=== PATIENT | male | born 1980 | race Caucasian/White ===

== ENCOUNTER 2017-03-05 13:10 | Emergency (ER) | payer OTHER ==
[2017-03-05 13:34] VITALS: BP 136/70
--- NOTE | 2017-03-05 14:09 | RAD ---
HISTORY: Right elbow pain, redness, and swelling COMPARISONS: None VIEWS: 4, Frontal, lateral, and oblique views of the right elbow FINDINGS: BONE DENSITY: Normal. BONES: There is no displaced fracture. JOINTS: There is no arthropathy. ALIGNMENT: There is no dislocation. SOFT TISSUES: There is soft tissue swelling along the olecranon OTHER FINDINGS: None. IMPRESSION: SOFT TISSUE SWELLING. NO ACUTE OSSEOUS INJURY. IF SYMPTOMS PERSIST, RECOMMEND REPEAT IMAGING.
--- NOTE | 2017-03-05 14:43 | UC ---
Lyndon Ortez Gabriel, scribed for Edgar Méndez MD on 03/05/17 at 1433 . Upper Extremity HPI - HPI Summary HPI Summary: This patient is a 36 year old M presenting to [facility] with a chief complaint of right elbow pain since this morning. The patient rates the pain 6/10 in severity. Symptoms aggravated by movement. Patient reports erythema and pain in right elbow over the olecranon. Patient denies fever and general malaise. Pt has psoriasis over this elbow that he treats with cream. - History of Current Complaint Chief Complaint: UCUpperExtremity Stated Complaint: ELBOW PAIN Time Seen by Provider: 03/05/17 14:25 Hx Obtained From: Patient Onset/Duration: Lasting Hours - this morning, Still Present Severity Initially: Mild Severity Currently: Mild Pain Intensity: 6 Pain Scale Used: 0-10 Numeric Aggravating Factor(s): Movement Associated Signs And Symptoms: Positive: Swelling, Redness. Negative: Fever - Allergies/Home Medications Allergies/Adverse Reactions: Allergies Allergy/AdvReac Type Severity Reaction Status Date / Time Penicillins [PCN] Allergy Unknown Verified 03/05/17 13:34 Reaction Details Home Medications: Home Medications PARoxetine HCL TAB* [Paxil TAB*] 15 mg PO DAILY 03/05/17 [History Confirmed 02/09] PMH/Surg Hx/FS Hx/Imm Hx Previously Healthy: Yes Endocrine History: Other Other Endocrine History: psoriasis - Surgical History Surgical History: Yes Surgery Procedure, Year, and Place: facial reconstruction at age 14yr old, tubes to ears - Family History Known Family History: Positive: Other - parents had cancer, uncle has psoriasis - Social History Occupation: Employed Full-time Alcohol Use: Occasionally Substance Use Type: Marijuana Substance Use Comment - Amount & Last Used: daily Smoking Status (MU): Never Smoked Tobacco Review of Systems Constitutional: Negative - fever and general malaise Musculoskeletal: Other: - right elbow pain, erythema, and swelling All Other Systems Reviewed And Are Negative: Yes Physical Exam Triage Information Reviewed: Yes Appearance: Well-Appearing, No Pain Distress Vital Signs: Initial Vital Signs Temp 99.3 F 03/05/17 13:26 Pulse 64 03/05/17 13:26 Resp 18 03/05/17 13:26 BP 136/70 03/05/17 13:26 Pulse Ox 100 03/05/17 13:26 Eyes: Positive: Conjunctiva Clear ENT: Positive: Pharynx normal, TMs normal Respiratory: Positive: Lungs clear Cardiovascular: Positive: RRR, No Murmur Musculoskeletal: Positive: ROM Intact, Other: - no effusion on exam of elbow right. He has FROM and no pain on range of motion. There is an area of psoriasis over the right elbow olecrenon with a secondary are of cellulitis. Neurological: Positive: Alert Psychological: Positive: Normal Response To Family Skin: Positive: Other - psoriasis with cellulitis right elbow olecrenon. Diagnostics - Radiology elbow XRay Radiology Interpretation Completed By: Radiologist - SOFT TISSUE SWELLING. NO ACUTE OSSEOUS INJURY. IF SYMPTOMS PERSIST, RECOMMEND REPEAT IMAGING. ED physician has reviewed this radiology report. Upper Extremity Course/Dx - Course Course Of Treatment: 36 yr old with cellulitis right elbow psoriasis patch overlying. Plan bactrim DS, and dc to home. - Differential Dx/Diagnosis Provider Diagnoses: psoriasis. cellulitis Discharge - Discharge Plan Condition: Good Disposition: HOME Prescriptions: Sulfamethox/Trimethoprim DS* [Bactrim DS 800/160 TAB*] 1 tab PO BID #20 tab Patient Education Materials: Cellulitis (ED), Elbow Bursitis (ED) Referrals: John Hardwick MD [Primary Care Provider] - The documentation as recorded by the Lyndon harris Gabriel accurately reflects the service I personally performed and the decisions made by Honey moon Walter, MD.
== END 2017-03-05 14:43 | disposition home or self-care (01) ==
LOC: UCEAST 13:10
DX: L03.113 Cellulitis of right upper limb (principal); L40.9 Psoriasis, unspecified; Z88.0 Allergy status to penicillin
CPT/HCPCS: 99212; G0463

== ENCOUNTER 2017-07-22 11:25 | Emergency (ER) | payer OTHER ==
[2017-07-22 11:44] VITALS: BP 127/84
--- NOTE | 2017-07-22 11:48 | UC ---
Ear Complaint HPI - HPI Summary HPI Summary: Pt presents with b/l earache. He tells me that his right ear started bothering him 4 days ago, he was seen at [place] and dx'd with otitis media and placed on zpak. He has been taking this. Last night his left ear began to hurt and his right ear is draining. Denies fever, chills, cough, SOB, chest pain. - History of Current Complaint Chief Complaint: UCGeneralIllness Stated Complaint: EAR PAIN RESP ISSUE Time Seen by Provider: 07/22/17 11:47 Hx Obtained From: Patient Onset/Duration: Gradual Onset Severity Initially: Moderate Severity Currently: Moderate Pain Intensity: 7 Pain Scale Used: 0-10 Numeric - Allergies/Home Medications Allergies/Adverse Reactions: Allergies Allergy/AdvReac Type Severity Reaction Status Date / Time Penicillins Allergy Intermediate unkown Verified 07/22/17 11:45 Home Medications: Home Medications Azithromycin TAB* [Zithromax TAB (Z-LAVERN) 250 mg #6 tabs] 2 tab PO .TODAY, THEN 1 DAILY 07/22/17 [History Confirmed 07/22/17] PMH/Surg Hx/FS Hx/Imm Hx - Additional Past Medical History Additional PMH: None Previously Healthy: Yes - Surgical History Surgical History: Yes Surgery Procedure, Year, and Place: facial reconstruction at age 14yr old, tubes to ears. finger surgery at 15 - Family History Known Family History: Positive: Other - parents had cancer, uncle has psoriasis - Social History Occupation: Employed Full-time Lives: With Family Alcohol Use: Occasionally Substance Use Type: Marijuana Substance Use Comment - Amount & Last Used: daily Smoking Status (MU): Former Smoker When Did the Patient Quit Smoking/Using Tobacco: 2007 Review of Systems Constitutional: Negative Skin: Negative Eyes: Negative ENT: Ear Ache Respiratory: Negative Cardiovascular: Negative Gastrointestinal: Negative Neurovascular: Negative Neurological: Negative Psychological: Negative All Other Systems Reviewed And Are Negative: Yes Physical Exam - Summary Physical Exam Summary: GENERAL: NAD. WDWN. No pain distress. SKIN: No rashes, sores, lesions, or open wounds. HEENT: Head: AT/NC Eyes: EOM intact. Conjunctiva clear without inflammation or discharge. Ears: Hearing grossly normal. NTTP tragus or postauricular. Right: TMs mild erythema and bulging. Mild ear canal edema with moderate purulent drainage. Left: TM mild erythema and bulging. No ear canal edema or drainage. Nose: Nasal mucosa pink and moist. NTTP maxillary and frontal sinus. Throat: Posterior oropharynx without exudates, erythema, or tonsillar enlargement. Uvula midline. NECK: Supple. Nontender. No lymphadenopathy. CHEST: CTAB. No r/r/w. No accessory muscle use. Breathing comfortably and in no distress. CV: RRR. Without m/r/g. Pulses intact. Brisk cap refill. NEURO: Alert. CN II-XII grossly intact. PSYCH: Age appropriate behavior. Triage Information Reviewed: Yes Vital Signs: Initial Vital Signs Temp 98.4 F 07/22/17 11:39 Pulse 76 07/22/17 11:39 Resp 18 07/22/17 11:39 BP 127/84 07/22/17 11:39 Pulse Ox 99 07/22/17 11:39 Ear Complaint Course/Dx - Course Course Of Treatment: Otitis externa right ear. Otitis media left ear. Continue zpak and add cipro otic. - Differential Dx/Diagnosis Provider Diagnoses: Otitis externa right. Otitis media left Discharge - Sign-Out/Discharge Documenting (check all that apply): Discharge/Admit/Transfer - Discharge Plan Condition: Stable Disposition: HOME Prescriptions: Ciprofloxacin HCl [Ciprofloxacin 0.2% EAR DROPS] 1 each OTIC BID #1 bottle Patient Education Materials: Otitis Externa (DC) Referrals: Kvng Blake MD [Primary Care Provider] - Additional Instructions: If you develop a fever, shortness of breath, chest pain, new or worsening symptoms - please call your PCP or go to the ED. - Billing Disposition and Condition Condition: STABLE Disposition: HOME
== END 2017-07-22 12:05 | disposition home or self-care (01) ==
LOC: UCEAST 11:25
DX: H60.91 Unspecified otitis externa, right ear (principal); H66.92 Otitis media, unspecified, left ear; Z88.0 Allergy status to penicillin; Z87.891 Personal history of nicotine dependence
CPT/HCPCS: 99212; G0463